=== PATIENT | female | born 2000 | race African-American/Black ===

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

== ENCOUNTER 2021-03-09 15:08 | Emergency (ER) | payer BC, SELFPAY ==
--- OUTSIDE RECORDS SUMMARY | 2021-03-09 15:11 | XMS REPORT | Continuity of Care Document ---
:2000 Author Organization [facility] t Address [address] [place] [address] Care Team Providers Name Role Phone Asked, Pcp Primary Care Physician Unavailable Grace Guzman Attending Clinician Problems Condition Condition Condition Status Onset Resolution Last Treating Co mments Source Name Details Category Date Date Treatment Clinician Date No known No known Disease Metho di active active st problems problems Hospit [facility] Allergies, Adverse Reactions, Alerts This patient has no known allergies or adverse reactions. Social History Social Habit Start Date Stop Date Quantity Comments Source Sex Assigned At [birth year] [facility] 00:00:00 00:00:00 Smoking Status Start Date Stop Date Source Unknown if ever smoked [facility] Medications Ordered Filled Start Stop Current Ordering Indication Dosage Frequency Signature Comments Components Source Medication Medication Date Date Medication? Clinician (SIG) Name Name No known No Methodi medications [facility] Procedures This patient has no known procedures. Plan of Care Planned Activity Planned Date Details Comments Source Future Scheduled Test CHLAMYDIA SCREENING [facility] [code = CHLAMYDIA SCREENING] Future Scheduled Test COVID-19 VACCINE (1) [facility] [code = COVID-19 VACCINE (1)] Future Scheduled Test Hepatitis C screening [facility] (procedure) [code = 778136448] Future Scheduled Test INFLUENZA VACCINE [facility] [code = INFLUENZA VACCINE] Encounters Start End Encounter Admission Attending Care Care Encounter Source Date/Time Date/Time Type Type Clinicians Facility Department ID 2020-12-09 2020-12-09 Office YVONNE Renae [id number] 15:32:52 16:41:18 Visit Aisha Edwards [facility] [id number] [facility] [id number] MATERNAL [id number] & CHILD [address] [place] [address] Results This patient has no known results.
--- NOTE | 2021-03-09 18:33 | ER ---
Nurse's Notes [facility] Name: Rebecca Dorsey Age: 20 yrs Sex: Female : 2000 Arrival Date: 03/09/2021 Time: 15:09 Bed DIS3 Private MD: Diagnosis: Nausea;Nausea with vomiting, unspecified;Other malaise and fatigue Presentation: 03/09 16:15 Chief complaint: Patient states: Nausea, loss of appetite, fatigue, body aches x 4 kg days. Coronavirus screen: Client denies travel out of the [place] in the last 14 days. At this time, unable to obtain information related to travel outside the [place] Ebola Screen: Patient negative for fever greater than or equal to 101.5 degrees Fahrenheit, and additional compatible Ebola Virus Disease symptoms Patient denies exposure to infectious person. Patient denies travel to an Ebola-affected area in the 21 days before illness onset. Initial Sepsis Screen: Does the patient meet any 2 criteria? No. Patient's initial sepsis screen is negative. Does the patient have a suspected source of infection? No. Patient's initial sepsis screen is negative. Risk Assessment: Do you want to hurt yourself or someone else? Patient reports no desire to harm self or others. Onset of symptoms was March 05, 2021. 16:15 Method Of Arrival: Ambulatory kg 16:15 Acuity: BERNADINE 4 kg Triage Assessment: 16:17 General: Appears in no apparent distress. Behavior is calm, cooperative, appropriate kg for age, quiet. Pain: Complains of pain in abdomen Pain currently is 8 out of 10 on a pain scale. at worst was 8 out of 10 on a pain scale. level that patient reports is acceptable is 3 out of 10 on a pain scale. Quality of pain is described as aching. GI: Reports nausea. 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 - Social history:: Smoking status: Patient reports the use of cigarette tobacco products, denies chronic smoking, but will smoke occasionally, Reported history of juuling and/or vaping. - Family history:: not pertinent. Screenin:19 Abuse screen: Denies threats or abuse. Denies injuries from another. Nutritional kg screening: No deficits noted. Tuberculosis screening: No symptoms or risk factors identified. Fall Risk None identified. Vital Signs: 16:15 BP 128 / 86; Pulse 72; Resp 20; Temp 98.8(O); Pulse Ox 99% on R/A; Weight 86.18 kg (R); kg Height 6 ft. 0 in. (182.88 cm) (R); Pain 8/10; 18:24 BP 128 / 86 RA Sitting (auto/reg); Pulse 72; Resp 14 S; Pulse Ox 99% on R/A; Weight mb4 86.18 kg (R); Height 6 ft. 0 in. (182.88 cm) (R); 18:24 Body Mass Index 25.77 (86.18 kg, 182.88 cm) mb4 ED Course: 15:09 Patient arrived in ED. as 16:17 Triage completed. kg 16:19 Patient has correct armband on for positive identification. kg 16:19 Arm band placed on left wrist. kg 18:22 Montez Xiong MD is Attending Physician. lico 19:05 Silva Samaniego, RN is Primary Nurse. iw Administered Medications: No medications were administered Outcome: 18:33 Discharge ordered by . lico 19:10 Patient left the ED. iw Signatures: Montez Xiong MD MD cha Martinez, Amelia as Silva Samaniego, RN RN iw Lorin Astorga mb4 Suzette Kam RN RN kg
--- NOTE | 2021-03-09 18:33 | EDPHYS ---
Physician Documentation [facility] Name: Rebecca Dorsey Age: 20 yrs Sex: Female : 2000 Arrival Date: 03/09/2021 Time: 15:09 Bed DIS3 Private MD: ED Physician Montez Xiong HPI: 03/09 18:29 This 20 yrs old Black Female presents to ER via Ambulatory with complaints of r/o covid.lico 18:29 The patient presents to the emergency department with nausea, that is mild. Onset: The lico symptoms/episode began/occurred 3 day(s) ago. Possible causes: unknown. The symptoms are aggravated by food , The symptoms are alleviated by nothing. Associated signs and symptoms: Pertinent positives: nausea. Severity of symptoms: At their worst the symptoms were moderate in the emergency department the symptoms are unchanged. The patient has not experienced similar symptoms in the past. GREASE MAN: 16:19 LMP 03/02/2021 kg Historical: - Allergies: 16:17 No Known Allergies; kg - Home Meds: 16:17 Depo-Provera IM [Active]; kg - PMHx: 16:17 None; kg - PSHx: 16:17 None; kg - Immunization history:: Adult Immunizations not up to date, Client reports receiving the 2nd dose of the Covid vaccine, Date received: February 23, 2021 [employer] Client reports receiving the 1st dose of the Covid vaccine, January 2021 [employer]. - Social history:: Smoking status: Patient reports the use of cigarette tobacco products, denies chronic smoking, but will smoke occasionally, Reported history of juuling and/or vaping. - Family history:: not pertinent. ROS: 18:29 Constitutional: Negative for fever, chills, and weight loss, Eyes: Negative for injury, lico pain, redness, and discharge, ENT: Negative for injury, pain, and discharge, Neck: Negative for injury, pain, and swelling, Cardiovascular: Negative for chest pain, palpitations, and edema, Respiratory: Negative for shortness of breath, cough, wheezing, and pleuritic chest pain, Back: Negative for injury and pain, : Negative for injury, bleeding, discharge, and swelling, MS/Extremity: Negative for injury and deformity, Skin: Negative for injury, rash, and discoloration, Neuro: Negative for headache, weakness, numbness, tingling, and seizure, Psych: Negative for depression, anxiety, suicide ideation, homicidal ideation, and hallucinations, Allergy/Immunology: Negative for hives, rash, and allergies, Endocrine: Negative for neck swelling, polydipsia, polyuria, polyphagia, and marked weight changes, Hematologic/Lymphatic: Negative for swollen nodes, abnormal bleeding, and unusual bruising. 18:29 Abdomen/GI: Positive for nausea and vomiting. Exam: 18:29 Constitutional: This is a well developed, well nourished patient who is awake, alert, lico and in no acute distress. Head/Face: Normocephalic, atraumatic. Eyes: Pupils equal round and reactive to light, extra-ocular motions intact. Lids and lashes normal. Conjunctiva and sclera are non-icteric and not injected. Cornea within normal limits. Periorbital areas with no swelling, redness, or edema. ENT: Nares patent. No nasal discharge, no septal abnormalities noted. Tympanic membranes are normal and external auditory canals are clear. Oropharynx with no redness, swelling, or masses, exudates, or evidence of obstruction, uvula midline. Mucous membranes moist. Neck: Trachea midline, no thyromegaly or masses palpated, and no cervical lymphadenopathy. Supple, full range of motion without nuchal rigidity, or vertebral point tenderness. No Meningismus. Chest/axilla: Normal chest wall appearance and motion. Nontender with no deformity. No lesions are appreciated. Cardiovascular: Regular rate and rhythm with a normal S1 and S2. No gallops, murmurs, or rubs. Normal PMI, no JVD. No pulse deficits. Respiratory: Lungs have equal breath sounds bilaterally, clear to auscultation and percussion. No rales, rhonchi or wheezes noted. No increased work of breathing, no retractions or nasal flaring. Abdomen/GI: Soft, non-tender, with normal bowel sounds. No distension or tympany. No guarding or rebound. No evidence of tenderness throughout. Back: No spinal tenderness. No costovertebral tenderness. Full range of motion. Skin: Warm, dry with normal turgor. Normal color with no rashes, no lesions, and no evidence of cellulitis. MS/ Extremity: Pulses equal, no cyanosis. Neurovascular intact. Full, normal range of motion. Neuro: Awake and alert, GCS 15, oriented to person, place, time, and situation. Cranial nerves II-XII grossly intact. Motor strength 5/5 in all extremities. Sensory grossly intact. Cerebellar exam normal. Normal gait. Psych: Awake, alert, with orientation to person, place and time. Behavior, mood, and affect are within normal limits. Vital Signs: 16:15 BP 128 / 86; Pulse 72; Resp 20; Temp 98.8(O); Pulse Ox 99% on R/A; Weight 86.18 kg (R); kg Height 6 ft. 0 in. (182.88 cm) (R); Pain 8/10; 18:24 BP 128 / 86 RA Sitting (auto/reg); Pulse 72; Resp 14 S; Pulse Ox 99% on R/A; Weight mb4 86.18 kg (R); Height 6 ft. 0 in. (182.88 cm) (R); 18:24 Body Mass Index 25.77 (86.18 kg, 182.88 cm) mb4 MDM: 18:22 Patient medically screened. lico 18:31 Differential diagnosis: gastritis, viral gastroenteritis, gastroenteritis. Data lico reviewed: vital signs, nurses notes, lab test result(s). Data interpreted: classroom monitor: rate is 72 beats/min, rhythm is regular, Pulse oximetry: on room air is 99 %. Counseling: I had a detailed discussion with the patient and/or guardian regarding: the historical points, exam findings, and any diagnostic results supporting the discharge/admit diagnosis, lab results, the need for outpatient follow up, for definitive care, 03/09 18:14 Order name: SARS-COV-2 RT PCR; Complete Time: 18:22 EDMS Administered Medications: No medications were administered Disposition Summary: 03/09/21 18:33 Discharge Ordered Location: Home lico Problem: new lico Symptoms: have improved lico Condition: Stable lico Diagnosis - Nausea lico - Nausea with vomiting, unspecified lico - Other malaise and fatigue lico Followup: lico - With: Private Physician - When: 2 - 3 days - Reason: Recheck today's complaints, Continuance of care, Re-evaluation by your physician Discharge Instructions: - Discharge Summary Sheet lico - Nausea and Vomiting, Adult lico - Nausea, Adult lico - Nausea and Vomiting, Adult, [id number] lico Forms: - Medication Reconciliation Form lico - Thank You Letter lico - Antibiotic Education lico - Prescription Opioid Use lico - Work release form eb Prescriptions: - Zofran 4 mg Oral Tablet - take 1 tablet by ORAL route every 12 hours As needed; 20 tablet; Refills: 0, lico Product Selection Permitted Signatures: Dispatcher [employer] EDMontez Antoine MD MD cha Graham, Kristen RN RN kg Corrections: (The following items were deleted from the chart) 17:19 16:21 CORONAVIRUS+[email or web address].LAB.BRZ ordered. OBIRI OBIRI
[2021-03-09 19:17] VITALS: BP 128/86; TEMP 98.8; O2SAT 99
== END 2021-03-09 19:10 | disposition home or self-care (01) ==
LOC: ER 15:08
DX: R53.81 Other malaise (principal); R53.83 Other fatigue; Z20.822 Contact with and (suspected) exposure to COVID-19
CPT/HCPCS: 99281; U0003